=== PATIENT | male | born 1990 | race Caucasian/White ===

== ENCOUNTER 2022-04-30 03:03 | Emergency (ER) | payer OTHER, MEDICAID ==
[~2022-04-30] VITALS: Ht 188 cm; Wt 71.7 kg
[2022-04-30 03:06] VITALS: BP 134/78
[2022-04-30] MEDS ORDERED: cephALEXin 500 MG CAP PO ONE (03:10)
[2022-04-30] MEDS ORDERED: IBUPROFEN 800 MG TAB PO ONE (03:10)
--- NOTE | 2022-04-30 03:11 | NUR ---
PT TO LOBBY
--- NOTE | 2022-04-30 03:50 | NUR ---
PT REFUSES DT
--- NOTE | 2022-04-30 04:22 | NUR ---
PT RETURN FROM XRAY TO ER BED 12
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
[2022-04-30] MEDS ORDERED: CEPH-588 PO (06:04)
[2022-04-30] MEDS ORDERED: IBUP-2213 PO (06:04)
[2022-04-30 06:15] VITALS: BP 128/74
--- NOTE | 2022-04-30 06:15 | NUR ---
Patient discharged with v/s stable. Written and verbal after care instructions given and explained. Patient alert, oriented and verbalized understanding of instructions. Ambulatory with steady gait. All questions addressed prior to discharge. ID band removed. Patient advised to follow up with PMD. Rx of KEFLEX AND IBUPROFEN given. Patient educated on indication of medication including possible reaction and side effects. Opportunity to ask questions provided and answered.
== END 2022-04-30 06:15 | disposition home or self-care (01) ==
LOC: MED 03:03
DX: S89.91XA Unspecified injury of right lower leg, initial encounter (principal); L03.115 Cellulitis of right lower limb; V49.88XA Car occupant (driver) (passenger) injured in other specified transport accidents, initial encounter; Y93.89 Activity, other specified; Y92.89 Other specified places as the place of occurrence of the external cause; Y99.8 Other external cause status
CPT/HCPCS: 73590; 90471; 90715; 99283